=== PATIENT | female | born 1990 | race African-American/Black ===

== ENCOUNTER 2020-07-23 22:09 | Emergency (ER) | payer OTHER ==
[~2020-07-23] VITALS: Ht 170.2 cm; Wt 74.8 kg
[2020-07-23] MEDS ORDERED: AMOXICILLIN 50500 MG PO (23:29)
[2020-07-23] MEDS ORDERED: NAPROSYN500 M1 PO (23:29)
[2020-07-23] MEDS ORDERED: NASONEX17 GM NASAL (23:30)
[2020-07-23 23:50] VITALS: BP 129/73
== END 2020-07-23 23:51 | disposition home or self-care (01) ==
LOC: M.ERS 22:09
DX: H92.01 Otalgia, right ear (principal)